=== PATIENT | male | born 1990 | race Caucasian/White ===

== ENCOUNTER 2018-09-19 12:52 | Emergency (ER) | payer OTHER ==
[~2018-09-19] VITALS: Ht 180.3 cm; Wt 72.6 kg
[~2018-09-19 12:52] MED LIST: ASPI81CH PO; CEPH500 PO; HYDR1TAB94 PO
[2018-09-19] MEDS ORDERED: Augmentin 875-1 EACH PO (13:47)
[2018-09-19] MEDS ORDERED: NYST237S MT (13:47)
== END 2018-09-19 13:56 | disposition home or self-care (01) ==
LOC: ER 12:52
DX: J02.0 Streptococcal pharyngitis (principal); Z91.030 Bee allergy status; I48.91 Unspecified atrial fibrillation; F17.200 Nicotine dependence, unspecified, uncomplicated
CPT/HCPCS: 99282; J1100

== ENCOUNTER → 2019-10-10 | Outpatient (CLI) | payer OTHER ==
[~2019-10-10] MED LIST changes: +Augmentin 875-1 EACH PO; +NYST237S MT
[2019-10-10 18:53] LABS: U Cannabinoids Screen DETECTED
[2019-10-10 18:54] LABS: U Amphetamine Screen Not Detected; U Barbituate Screen Not Detected; U Benzodiazapine Screen Not Detected; U Buprenorphine Screen Not Detected; U Cocaine Screen Not Detected; U Methadone Screen Not Detected; U Methamphetamine Screen Not Detected; U Opiates Screen Not Detected; U Oxycodone Screen Not Detected; U Propoxyphene Screen Not Detected
== END | disposition home or self-care (01) ==
LOC: LAB 14:02 → LAB SHORT 14:02
PROVIDERS: Registered Nurse Psychiatric/Mental Health
DX: Z51.81 Encounter for therapeutic drug level monitoring (principal); Z79.899 Other long term (current) drug therapy

== ENCOUNTER 2022-12-26 23:55 | Emergency (ER) | payer OTHER ==
[~2022-12-26] VITALS: Ht 172.7 cm; Wt 72.6 kg
[2022-12-27 00:01] VITALS: BP 140/84
[2022-12-27] MEDS ORDERED: CLIN300 PO (00:23)
== END 2022-12-27 00:35 | disposition home or self-care (01) ==
LOC: ER 23:55
DX: K04.7 Periapical abscess without sinus (principal); F17.200 Nicotine dependence, unspecified, uncomplicated
CPT/HCPCS: 99282; A9270

== ENCOUNTER 2025-03-10 16:19 | Emergency (ER) | payer OTHER ==
[~2025-03-10] VITALS: Ht 180.3 cm; Wt 85.7 kg
[~2025-03-10 16:19] MED LIST changes: +CLIN300 PO
[2025-03-10 16:46] VITALS: BP 142/78
[2025-03-10] MEDS ORDERED: IBUP600 PO (16:48)
[2025-03-10] MEDS ORDERED: Amoxicillin875 MG PO (16:48)
== END 2025-03-10 16:54 | disposition home or self-care (01) ==
LOC: ER 16:19
DX: K08.89 Other specified disorders of teeth and supporting structures (principal); F17.200 Nicotine dependence, unspecified, uncomplicated; Z91.030 Bee allergy status; Z79.899 Other long term (current) drug therapy
CPT/HCPCS: 99282

== ENCOUNTER 2025-04-05 10:17 | Emergency (ER) | payer OTHER ==
[~2025-04-05] VITALS: Ht 175.3 cm; Wt 77.1 kg
[~2025-04-05 10:17] MED LIST changes: +Amoxicillin875 MG PO; +IBUP600 PO
[2025-04-05 10:24] VITALS: BP 144/86
[2025-04-05] MEDS ORDERED: DiphenhydrAMINE HCl 50 MG/ML 1ML Vial IV ONE (11:35)
[2025-04-05] MEDS ORDERED: PRED20 PO (12:33)
[2025-04-05] MEDS ORDERED: FAMO20 PO (12:33)
[2025-04-05] MEDS ORDERED: BENADRYL25 M1 PO (12:33)
== END 2025-04-05 12:49 | disposition home or self-care (01) ==
LOC: ER 10:17
DX: T63.451A Toxic effect of venom of hornets, accidental (unintentional), initial encounter (principal); L50.0 Allergic urticaria; I48.91 Unspecified atrial fibrillation; Z91.030 Bee allergy status; Z79.2 Long term (current) use of antibiotics
CPT/HCPCS: 96374; 96375; 99282-25; J1200; J2919